=== PATIENT | female | born 2000 | race Caucasian/White ===

== ENCOUNTER 2020-03-03 11:40 | Emergency (ER) | payer OTHER ==
[~2020-03-03] VITALS: Ht 162.6 cm; Wt 108.9 kg
--- NOTE | 2020-03-03 12:57 | Emergency Department Note ---
History of Present Illnes History of Present Illness Chief Complaint: Extremity Trauma/Pain History of Present Illness This is a 19 year old female Chief Complaint Comment rt hand swelling, +radial pulse and cap refill < 2 seconds. pt aaox4, ambulatory. 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 pt does not wear gloves "because i'm allergic to latex." pt states everytime she is working with the fabric the gowns are made from, her hands get red swollen patches. no itching, no hives, warm too touch. HOWEVER, when pt was signing in, nurse over heard patient stating she has her right hand swell for first time only last night. no injury/trauma. . Historian: Patient Arrival Mode: Car Onset (how long ago): day(s) (2) Location: right hand Quality: rash Radiation: Denies non-radiation, Denies back, Denies neck, Denies extremity, Denies abdomen, Denies periumbilical, Denies flank, Denies proximal, Denies distal, Denies other Severity: mild Onset quality: gradual Duration (how long): day(s) (3) Timing of current episode: constant Progression: unchanged Chronicity: new Context: Denies recent illness, Denies recent surgery, Denies recent immobilization, Denies recent travel, Denies trauma/injury, Denies new medications, Denies hx of DVT/PE, Denies non-compliance w/ medications, Denies other Relieving factors: none Exacerbating factors: none Associated symptoms: Denies denies other symptoms, Denies confusion, Denies chest pain, Denies cough, Denies diaphoresis, Denies fever/chills, Denies headaches, Denies loss of appetite, Denies malaise, Denies nausea/vomiting, Denies rash, Denies seizure, Denies shortness of breath, Denies syncope, Denies weakness, Denies other Treatments prior to arrival: none Past Medical/Family History Physician Review I have reviewed the patient's past medical and family history. Any updates have been documented here. Past Medical History Recent Fever: No Clinical Suspicion of Infectio: No New/Unexplained Change in Ment: No Past Medical History: Asthma Past Surgical History: None Social History Smoking Cessation: Smoker current status unk Counseling Performed: No Alcohol Use: None Any Illegal Drug Use: No Other Any Pre-Existing Lines (PICC,: No Review of Systems Review of Systems Constitutional: Reports no symptoms EENTM: Reports no symptoms Cardiovascular: Reports no symptoms Respiratory: Reports no symptoms; Denies as per HPI, Denies change in phlegm color, Denies chest congestion, Denies cough, Denies hemoptysis, Denies excessive phlegm production, Denies pain on inspiration, Denies pain with cough, Denies dyspnea, Denies dyspnea on exertion, Denies snoring, Denies stridor, Denies wheezing, Denies other Gastrointestinal: Reports no symptoms; Denies as per HPI, Denies abdominal pain, Denies constipation, Denies diarrhea, Denies nausea, Denies vomiting, Denies other Genitourinary: Reports no symptoms; Denies as per HPI, Denies discharge, Denies dysuria, Denies frequency, Denies hematuria, Denies pain, Denies other Musculoskeletal: Reports no symptoms Integumentary: Reports as per HPI Neurological: Reports no symptoms Psychological: Reports no symptoms Endocrine: Reports no symptoms Hematological/Lymphatic: Reports no symptoms Physical Exam Related Data Allergies: Coded Allergies: Latex, Natural Rubber (Verified Allergy, Unknown, 03/03/20) Penicillins (Verified Allergy, Unknown, 03/03/20) Uncoded Allergies: BURN CREAM (Allergy, Unknown, 03/03/20) "SOMETHING THAT STARTS WITH LETTER B THAT'S IN THE BURN CREAM" SHE IS ALLERGIC TOO. Triage Vital Signs Vital Signs Date Time Temp Pulse Resp B/P (MAP) Pulse Ox O2 Delivery O2 Flow Rate FiO2 03/03/20 11:46 98.4 76 16 142/87 100 Room Air Vital signs reviewed: Yes Physical Exam CONSTITUTIONAL Constitutional: Present well-developed, Present well-nourished HENT HENT: Present normocephalic, Present atraumatic, Present oropharynx clear/moist, Present nose normal HENT L/R: Present left ext ear normal, Present right ext ear normal EYES Eyes: Reports PERRL, Reports conjunctivae normal; Denies EOM normal, Denies lids normal, Denies left eye discharge, Denies right eye discharge, Denies scleral icterus, Denies other NECK Neck: Present ROM normal; Absent supple, Absent thyromegaly, Absent tracheal deviation, Absent stridor, Absent JVD, Absent cervical adenopathy, Absent carotid bruit, Absent other PULMONARY Pulmonary: Present effort normal, Present breath sounds normal; Absent respiratory distress, Absent rales, Absent rhonchi, Absent chest tenderness, Absent other CARDIOVASCULAR Cardiovascular: Present regular rhythm, Present heart sounds normal, Present capillary refill normal, Present normal rate; Absent irregular rhythm, Absent intact distal pulses, Absent tachycardia, Absent bradycardia, Absent murmur, Absent gallop, Absent friction rub, Absent palpable pulses, Absent strong pulses, Absent weak pulses, Absent LLE edema, Absent RLE edema, Absent other GASTROINTESTINAL Abdominal: Present soft, Present nontender, Present bowel sounds normal; Absent distension, Absent tender, Absent guarding, Absent mass, Absent rebound, Absent hernia, Absent left CVA tenderness, Absent right CVA tenderness, Absent other GENITOURINARY Genitourinary: Present exam deferred SKIN Skin: Present warm, Present dry, Present rash (bth hands) MUSCULOSKELETAL Musculoskeletal: Present ROM normal NEUROLOGICAL Neurological: Present alert, Present oriented x 3, Present no gross motor or sensory deficits PSYCHOLOGICAL Psychological: Present mood/affect normal, Present judgement normal Assessment & Plan Medical Decision Making MDM dernmatitis cellulitis Reassessment Reassessment same Assessment & Plan Final Impression: (1) Contact dermatitis and eczema Depart Disposition: HOME, SELF-CARE Last Vital Signs Date Time Temp Pulse Resp B/P (MAP) Pulse Ox O2 Delivery O2 Flow Rate FiO2 03/03/20 11:46 98.4 76 16 142/87 100 Room Air DMITRIY MILLER MD Mar 03, 2020 12:57
--- OUTSIDE RECORDS SUMMARY | 2020-03-03 13:27 | XMS REPORT | Continuity of Care Document ---
Author Author [facility] t Organization [facility] Address [address] [place] [address] Phone Unavailable Care Team Providers Care Rubber Printing Machine Operator Name Role Phone Lisa Kay Attphys AASHISH KAY M.D. Attphys Unavailable FRANKLIN UMANZOR M.D. Attphys Unavailable Lisa Kay Admphys Payers Payer Name Policy Type Policy Number Effective Date Expiration Date S ource Problems Condition Name Condition Details Condition Category Status Onset Date Resolution Date Last Treatment Date Treating Clinician Comments Source History of Asthma History of Asthma Problem Resolved [facility] Sprain of carpal joint of wrist, right, initial encoun ter Sprain of carpal joint of wrist, right, initial encounter Problem Active [facility] Carpal tunnel syndrome, right Carpal tunnel syndrome, right Problem Active [facility] Allergies, Adverse Reactions, Alerts Allergy Name Allergy Type Status Severity Reaction(s) Onset Date Inacti ve Date Treating Clinician Comments Source sulfamethoxazole DA Active [place] 2018-03-13 00:00:00 [facility] trimethoprim DA [place] 2018-03-13 00:00:00 [facility] Penicillins DA Active [place] 2017-05-23 00:00:00 [facility] Penicillins Allergy to drug (finding) Active [facility] Bactrim Allergy to drug (finding) Active [facility] Social History Smoking Status Start Date Stop Date Source [facility] Medications This patient has no known medications. Procedures This patient has no known procedures. Encounters Start Date/Time End Date/Time Encounter Type Admission Type [facility] Facility Care Department Encounter ID Source 2019-05-06 09:38:35 2019-05-06 23:59:59 Outpatient BritneyAashish javier Lisa [id number] 2019-05-01 14:15:00 2019-05-01 14:15:00 Appointment; AASHISH KAY M.D. MUSCAT, JOSEPH, M.D. [facility] [id number] [facility] 2019-03-20 08:20:00 2019-03-20 08:20:00 Appointment; VERNA UMANZOR M.D. JORDAN, MATTHEW, M.D. [facility] [id number] [facility] Results Test Description Test Time Test Comments Results Result Comments Source STREPTOCOCCUS PCR SCREEN 2019-02-21 05:15:00 Test Item STREPTOCOCCUS DYSGALACTIAE (test code = STREPGC) NEGATIVE FOR G/C N EGATIVE STREPA MOLECULAR (test code = STREPAMOL) NEGATIVE FOR GRP A NEGATIV E
--- OUTSIDE RECORDS SUMMARY | 2020-03-03 13:27 | XMS REPORT | Continuity of Care Document ---
Author Author [facility] Address Unknown Phone Unavailable Care Team Providers Care Town Manager Name Role Phone [employer] Unavailable Un available Problems No Data Provided for This Section Medications No Data Provided for This Section Allergies, Adverse Reactions, Alerts No Known Medication Allergies Immunizations No Data Provided for This Section Results No Data Provided for This Section Pathology Reports No Data Provided for This Section Diagnostic Reports No Data Provided for This Section Consultation Notes No Data Provided for This Section Discharge Summaries No Data Provided for This Section History and Physicals No Data Provided for This Section Vital Signs No Data Provided for This Section Encounters Location Location Details Encounter Type Encounter Number Reason For Visit Attending Provider ADM Date DC Date Status Source [facility] tpatient [id number] Darin h Muscat 05/06/2019 05/06/2019 [facility] Outpatient [id number] Aashish Muscat 05/06/2019 05/07/2019 [facility] Procedures No Data Provided for This Section Assessment and Plan No Data Provided for This Section Plan of Care No Data Provided for This Section Social History Social History Date Source Social History TypeResponse 05/07/2019 [facility] Family History No Data Provided for This Section Advance Directives No Data Provided for This Section Functional Status No Data Provided for This Section
== END 2020-03-03 13:34 | disposition home or self-care (01) ==
LOC: FSED 11:59
DX: R21 Rash and other nonspecific skin eruption (principal); L25.9 Unspecified contact dermatitis, unspecified cause
CPT/HCPCS: 99283